=== PATIENT | female | born 1985 | race Caucasian/White ===

== ENCOUNTER 2018-04-18 10:54 | Outpatient (CLI) | END 2018-04-18 13:00 | disposition home or self-care (01) ==

== ENCOUNTER 2018-05-25 16:40 | Inpatient (IN) | END 2018-05-28 15:00 | disposition home or self-care (01) | DRG 788 ==

== ENCOUNTER 2019-02-02 18:16 | Emergency (ER) | payer OTHER ==
[~2019-02-02] VITALS: Ht 149.9 cm; Wt 64.0 kg
[~2019-02-02 18:16] MED LIST: FERR325T5 PO; PREN1TAB79 PO
[2019-02-02 18:20] VITALS: Ht 149.9 cm; Wt 64.0 kg
--- NOTE | 2019-02-02 19:18 | ERD ---
ER Documentation Chief Complaint Chief Complaint pelvic pain with vaginal spotting, pt just found out about HPI 33-year-old female, , at approximately 6 weeks by LMP 12/09/2018, presents the emergency department, complaining of 2 days with vaginal spotting, associated with pelvic discomfort. Otherwise, no fever, no chills, no abdominal pain, no urinary symptoms. ROS All systems reviewed and are negative except as per history of present illness. Medications Home Meds Reported Medications Ferrous Sulfate (Ferrous Sulfate) 325 Mg Tablet.dr, 325 MG PO TID 04/18/18 Vit W-Ca,Fe,FA(<1 mg) ( Vitamins) 1 Each Tablet, 1 EACH PO DAILY, TAB 04/18/18 Allergies Allergies: Coded Allergies: No Known Allergy (Unverified , 06/21/13) PMhx/Soc Medical and Surgical Hx: pt denies Medical Hx History of Surgery: Yes (2 previous ) Hx Alcohol Use: No Hx Substance Use: No Hx Tobacco Use: No Smoking Status: Never smoker FmHx Family History: No diabetes, No coronary disease Physical Exam Vitals Vital Signs Date Temp Pulse Resp B/P (MAP) Pulse Ox O2 O2 Flow FiO2 Time Delivery Rate 02/02/19 97.7 78 18 146/78 99 18:20 (100) Physical Exam Const: No acute distress Head: Atraumatic Eyes: Normal Conjunctiva ENT: Normal External Ears, Nose and Mouth. Neck: Full range of motion. No meningismus. Resp: Clear to auscultation bilaterally Cardio: Regular rate and rhythm, no murmurs Abd: Soft, non tender, non distended. Normal bowel sounds Skin: No petechiae or rashes Back: No midline or flank tenderness Ext: No cyanosis, or edema Neur: Awake and alert Psych: Normal Mood and Affect Result Diagram: 02/02/191956 Results 24 hrs Laboratory Tests Test 02/02/19 19:56 02/02/19 19:57 02/02/19 20:26 02/02/19 20:27 Beta HCG, 2616.1 mIU/ml Quantitative White Blood Count 6.9 10^3/ul Red Blood Count 4.72 10^6/ul Hemoglobin 12.9 g/dl Hematocrit 40.6 % Mean Corpuscular 86.0 fl Volume Mean Corpuscular 27.3 pg Hemoglobin Mean Corpuscular 31.8 g/dl Hemoglobin Concent Red Cell 12.5 % Distribution Width Platelet Count 289 10^3/UL Mean Platelet 9.7 fl Volume Immature 0.300 % Granulocytes % Neutrophils % 57.8 % Lymphocytes % 30.0 % Monocytes % 10.1 % Eosinophils % 1.4 % Basophils % 0.4 % Nucleated Red 0.0 /100WBC Blood Cells % Immature 0.020 10^3/ul Granulocytes # Neutrophils # 4.0 10^3/ul Lymphocytes # 2.1 10^3/ul Monocytes # 0.7 10^3/ul Eosinophils # 0.1 10^3/ul Basophils # 0.0 10^3/ul Nucleated Red 0.0 10^3/ul Blood Cells # Bedside Urine pH 6.0 (LAB) Bedside Urine Negative Protein (LAB) Bedside Urine Negative Glucose (UA) Bedside Urine Negative Ketones (LAB) Bedside Urine 1+ Blood Bedside Urine Negative Nitrite (LAB) Bedside Urine Negative Leukocyte Esterase (L POC Beta HCG, POSITIVE Qualitative Patient: FIDELIA HERNANDEZ : 1985 Age: 33 Sex: F MR #: [id number] DOS: 02/02/191942 Ordering MD: DOMINIK KELLER MD Location: [facility] Room/Bed: PROCEDURE: US Pelvis/OB. CLINICAL INDICATION: Vaginal spotting TECHNIQUE: Multiple sonographic images of the pelvis were obtained utilizing a transabdominal and endovaginal technique. The images were reviewed on a PACS workstation. COMPARISON: None. FINDINGS: There is a small cystic structure within the endometrium measuring 2.4 cm which would correspond to a calculated gestational age of 7 weeks and 2 days. No pole or yolk sac is yet visualized. There is debris noted within the gestational sac. The ovaries are normal. No abnormal adnexal masses are present. The right ovary measures 2.6 x 1.3 x 2.9 cm. The left ovary measures 2.4 x 1.6 x 1.5 cm. No significant free fluid is present within the pelvis. RPTAT: AA IMPRESSION: Possible early intrauterine at 7 weeks and 2 days. No pole or yolk sac is yet visualized. The findings likely represent a nonviable . Close followup ultrasound and hCG is recommended. Procedures/MDM Vital signs stable, Physical exam unremarkable. Differential diagnosis include but not limited to: UTI, threatening , incomplete versus complete , ectopic , physiologic implantation bleeding, molar . Physical examination and clinical presentation most likely consistent with threatening . During the ED course the patient remained hemodynamically stable and asymptomatic. Results and clinical impression discussed with patient who agrees with management. The patient is stable to be treated outpatient and will be discharged home with close monitoring and follow-up in 2 days with her primary physician. Bed rest and pelvic rest recommended until further medical evaluation. The patient was instructed regarding the outcomes and the potential complications like severe bleeding and . If the patient presents severe bleeding or pain, she was instructed to return to the hospital immediately. Disclaimer: Inadvertent spelling and grammatical errors are likely due to EH R/dictation software use and do not reflect on the overall quality of patient care. Also, please note that the electronic time recorded on this note does not necessarily reflect the actual time of the patient encounter. Departure Diagnosis: Primary Impression: Threatened Additional Impression: First trimester bleeding Condition: Stable Additional Instructions: Muchas juan por [facility] para wright servicio. Esperamos que en wright visita a la karl de emergencia wright problema medico haya sido solucionado y que se sienta mucho mejor. Para estar seguros que wright mejoria sigue en proceso, le pedimos el favor de hacer harshil mejia de seguimiento medico con wright doctor primario en los proximos 2-4 mckeon. Lleve con usted estos documentos y las medicinas recetadas. Si vince sintomas empeoran, NO SE ESPERE, por favor regrese a karl de emergencia INMEDIATAMENTE. En giovanni que usted no tenga un mdico de atencin primaria: Llame al mdico o clnica comunitaria de referencia que aparece abajo jane las horas de consultorio para hacer harshil mejia para que le vean. CLINICAS: [facility] [phone] [facility] [phone] [facility] [phone] [facility] [phone] [facility] [phone] [id number] [facility]. [phone] DOMINIK MIGUEL MD Feb 02, 2019 19:18
[2019-02-02 21:08] VITALS: BP 118/66; PULSE 58; RESP 17
== END 2019-02-02 21:08 | disposition home or self-care (01) ==
LOC: FTE 18:16
DX: O20.0 Threatened abortion (principal); Z3A.01 Less than 8 weeks gestation of pregnancy
CPT/HCPCS: 76801; 76817; 81003; 81025; 84702; 85025; Z7502

== ENCOUNTER 2019-02-06 12:48 | Observation (INO) | payer BC, OTHER ==
[2019-02-06] VITALS (14 sets, daily range): BP systolic 108–125; BP diastolic 61–74; PULSE 60–90; RESP 13–21; Ht 157.5 cm; Wt 65.0 kg
[~2019-02-06] VITALS: Ht 157.5 cm; Wt 65.0 kg
[2019-02-06] MEDS ORDERED: KETOROLAC 30 MG INJ IV STA (14:04)
[2019-02-06] MEDS ORDERED: CEFAZOLIN 2 GM/50 ML (PMX) 50 ML IVPB ONE (19:00)
[2019-02-06] MEDS ORDERED: FENTAnyl 50 MCG/ML VIAL ONE (19:25)
[2019-02-06] MEDS ORDERED: PROPOFOL 20 ML ONE (19:25)
[2019-02-06] MEDS ORDERED: DEXAMETHASONE 4 MG/ML 5 ML INJ ONE (19:28)
[2019-02-06] MEDS ORDERED: ONDANSETRON 4 MG INJ ONE (19:28)
[2019-02-06] MEDS ORDERED: LIDOCAINE 2% (SDV) 5 ML INJ ONE (19:29)
[2019-02-06] MEDS ORDERED: CEFAZOLIN 1 GM INJ ONE (19:44)
[2019-02-06] MEDS ORDERED: OXYTOCIN 10 UNIT INJ ONE (19:58)
[2019-02-06] MEDS ORDERED: MEPERIDINE 25 MG INJ ONE (20:13)
[2019-02-06] MEDS ORDERED: FENTAnyl 50 MCG/ML VIAL IV PRN ×3 (20:30)
[2019-02-06] MEDS ORDERED: MEPERIDINE 25 MG INJ IV PRN (20:30)
[2019-02-06] MEDS ORDERED: LABETALOL HCL 20MG INJ IV PRN (20:30)
[2019-02-06] MEDS ORDERED: DIPHENHYDRAMINE 50 MG INJ IV PRN (20:30)
[2019-02-06] MEDS ORDERED: ONDANSETRON 4 MG INJ IV PRN (20:30)
[2019-02-06] MEDS ORDERED: ALBUTEROL 0.083% (NEB) 2.5 MG/3 ML AMP HHN PRN (20:30)
[2019-02-06] MEDS ORDERED: EPHEDrine 25 MG/5 ML SYG IV PRN (20:30)
[2019-02-06] MEDS ORDERED: METOCLOPRAMIDE 10 MG INJ IV PRN (20:30)
[2019-02-06] MEDS ORDERED: KETOROLAC 30 MG INJ IV PRN (20:30)
[2019-02-06] MEDS ORDERED: hydrALAzine 20 MG INJ IV PRN (20:30)
== END 2019-02-06 21:15 | disposition home or self-care (01) ==
LOC: E/R 12:48 → REC 19:13
PROVIDERS: ADMIT Obstetrics & Gynecology; ATTEND Obstetrics & Gynecology
DX: O03.4 Incomplete spontaneous abortion without complication (principal)
CPT/HCPCS: 36415; 59812; 76801; 81001; 84702; 85025; 88305; 96374; J0690; J1100; J1885; J2175; J2405; J2590; J3010; Z7500; Z7502; Z7512; Z7610; 99217; G0378